=== PATIENT | female | born 1945 | race Caucasian/White ===

== ENCOUNTER → 2016-12-30 | Outpatient (CLI) | payer MEDICARE, OTHER | LOC: MAMO 10:03 | DX: Z12.31 Encounter for screening mammogram for malignant neoplasm of breast (principal) | CPT/HCPCS: G0202 ==

== ENCOUNTER → 2020-07-22 | Outpatient (CLI) | payer MEDICARE, OTHER ==
[~2020-07-22] MED LIST: ACCUPRIL40 MG PO; AMBIEN10 MG PO; ATORVASTATIN CA20 MG PO; ECOTRIN81 MG PO; IBANDRONATE SO150 MG PO; LEXAPRO10 MG PO; MOBIC7.5 MG PO; SYNTHROID100 MCG PO; VITAMIN B12-FO1 EACH PO; VITAMIN D250000 UNIT PO
== END ==
LOC: KOH-I 15:15
DX: M51.16 Intervertebral disc disorders with radiculopathy, lumbar region (principal); M51.25 Other intervertebral disc displacement, thoracolumbar region; M48.05 Spinal stenosis, thoracolumbar region
CPT/HCPCS: 72148

== ENCOUNTER → 2020-10-29 | Outpatient (CLI) | payer MEDICARE, OTHER | LOC: MAMO 10-27 10:30 | DX: Z12.31 Encounter for screening mammogram for malignant neoplasm of breast (principal); R92.8 Other abnormal and inconclusive findings on diagnostic imaging of breast | CPT/HCPCS: 77063; 77067 ==

== ENCOUNTER 2020-11-23 13:14 | Emergency (ER) | payer MEDICARE, OTHER | END 2020-11-23 15:30 | disposition home or self-care (01) | LOC: ER1 13:14 | DX: S83.91XA Sprain of unspecified site of right knee, initial encounter (principal); I10 Essential (primary) hypertension; W19.XXXA Unspecified fall, initial encounter; Y92.009 Unspecified place in unspecified non-institutional (private) residence as the place of occurrence of the external cause | CPT/HCPCS: 73564; 99283; J1885 ==

== ENCOUNTER → 2020-12-23 | Outpatient (CLI) | payer MEDICARE, OTHER | LOC: KOH-I 10:11 | DX: S83.281A Other tear of lateral meniscus, current injury, right knee, initial encounter (principal); M17.11 Unilateral primary osteoarthritis, right knee; S83.241A Other tear of medial meniscus, current injury, right knee, initial encounter; M25.561 Pain in right knee | CPT/HCPCS: 73721 ==

== ENCOUNTER 2021-05-12 11:52 | Emergency (ER) | payer MEDICARE, OTHER ==
[2021-05-12 13:36] LABS: HEMOGLOBIN 14.9 gm/dl (12.3-15.3); RED BLOOD COUNT 4.52 M/UL (4.00-5.10); WHITE BLOOD COUNT 9.9 K/UL (4.5-11.0)
[2021-05-12] MEDS ORDERED: IBUPROFEN600 MG PO (13:40)
[2021-05-12 13:53] LABS: BUN/CREATININE RATIO 16 (0-10)
== END 2021-05-12 14:00 | disposition home or self-care (01) ==
LOC: ER1 11:52
PROVIDERS: Nurse Practitioner
DX: S00.81XA Abrasion of other part of head, initial encounter (principal); I10 Essential (primary) hypertension; E03.9 Hypothyroidism, unspecified; E78.5 Hyperlipidemia, unspecified; W19.XXXA Unspecified fall, initial encounter
CPT/HCPCS: 70450; 73130; 73560; 80053; 85025; 93005; 99284

== ENCOUNTER → 2021-06-29 | Outpatient (CLI) | payer MEDICARE, OTHER ==
[~2021-06-29] MED LIST changes: +BIOTIN; +CENTRUM; +FLONASE; +IBUPROFEN600 MG PO; +LASIX; +OXYBUTYNIN CHLOR5 MG PO; +POTASSIUM; +TYLENOL
[2021-06-29 11:54] LABS: RED BLOOD COUNT 4.31 M/UL (4.00-5.10); WHITE BLOOD COUNT 7.1 K/UL (4.5-11.0)
[2021-06-29 12:11] LABS: BUN/CREATININE RATIO 14 (0-10)
== END ==
LOC: OPSV2 10:30 → EDSTATUS 10:30 → OPSV2 11:09
PROVIDERS: Orthopaedic Surgery
DX: Z01.818 Encounter for other preprocedural examination (principal)
CPT/HCPCS: 36415; 71046; 80048; 85025; 93005

== ENCOUNTER → 2021-07-12 | Outpatient (CLI) | payer MEDICARE, OTHER ==
[~2021-07-12] MED LIST changes: -BIOTIN; +BIOTIN GUMMIES PO; -CENTRUM; +CENTRUM CHEWAB1 EAC3 PO; -FLONASE; +FLONASE ALLER15.8 ML; -TYLENOL; +TYLENOL EXTRA500 MG PO; +VITAMIN D325 MCG PO
[2021-07-12 12:33] LABS: BUN/CREATININE RATIO 21 (0-10)
== END ==
LOC: LAB 11:51
PROVIDERS: Surgery
DX: Z01.812 Encounter for preprocedural laboratory examination (principal)
CPT/HCPCS: 36415; 80048; 86850; 86900; 86901

== ENCOUNTER 2021-07-13 05:25 | Day surgery (SDC) | payer MEDICARE, OTHER ==
[~2021-07-13] VITALS: Ht 152.4 cm; Wt 90.7 kg
[~2021-07-13 05:25] MED LIST changes: -BIOTIN GUMMIES PO; -CENTRUM CHEWAB1 EAC3 PO; -FLONASE ALLER15.8 ML; -SYNTHROID100 MCG PO; -TYLENOL EXTRA500 MG PO; -VITAMIN D325 MCG PO
[2021-07-13] MEDS ORDERED: SYNTHROID100 MCG PO (06:33)
[2021-07-13] MEDS ORDERED: FLONASE ALLER15.8 ML (11:58)
[2021-07-13] MEDS ORDERED: TYLENOL EXTRA500 MG PO (11:58)
[2021-07-13] MEDS ORDERED: BIOTIN GUMMIES PO (11:59)
[2021-07-13] MEDS ORDERED: CENTRUM CHEWAB1 EAC3 PO (11:59)
[2021-07-13] MEDS ORDERED: MOBIC7.5 MG PO (19:05)
[2021-07-13] MEDS ORDERED: VITAMIN D325 MCG PO (19:06)
--- NOTE | 2021-07-13 23:38 | NUR ---
polar ice on rt knee
--- NOTE | 2021-07-14 05:58 | NUR ---
POLAR ICE OFF
[2021-07-14 06:39] LABS: HEMOGLOBIN 12.5 gm/dl (12.3-15.3); RED BLOOD COUNT 3.86 M/UL (4.00-5.10); WHITE BLOOD COUNT 16.7 K/UL (4.5-11.0)
[2021-07-14 06:59] LABS: BUN/CREATININE RATIO 22 (0-10)
[2021-07-15 05:32] LABS: HEMOGLOBIN 12.4 gm/dl (12.3-15.3); RED BLOOD COUNT 3.82 M/UL (4.00-5.10); WHITE BLOOD COUNT 14.1 K/UL (4.5-11.0)
[2021-07-15 05:45] LABS: BUN/CREATININE RATIO 20 (0-10)
[2021-07-15] MEDS ORDERED: ROXICODONE TAB 55 MG PO (18:38)
[2021-07-15] MEDS ORDERED: ASPIRIN EC81 MG PO (18:38)
[2021-07-16 06:23] LABS: HEMOGLOBIN 12.1 gm/dl (12.3-15.3); RED BLOOD COUNT 3.74 M/UL (4.00-5.10); WHITE BLOOD COUNT 11.2 K/UL (4.5-11.0)
[2021-07-16 06:40] LABS: BUN/CREATININE RATIO 21 (0-10)
--- NOTE | 2021-07-16 10:35 | NUR ---
able to get hold of ambulance-
== END 2021-07-16 11:53 ==
LOC: OR 05:25 → EDSTATUS 07:30 → OR 07:30 → M/S 15:20 → OR 07-16 11:53
PROVIDERS: Orthopaedic Surgery
DX: M17.11 Unilateral primary osteoarthritis, right knee (principal); M21.061 Valgus deformity, not elsewhere classified, right knee; I10 Essential (primary) hypertension; E78.5 Hyperlipidemia, unspecified; Z88.5 Allergy status to narcotic agent; Z79.82 Long term (current) use of aspirin; Z20.822 Contact with and (suspected) exposure to COVID-19; Z87.891 Personal history of nicotine dependence; E03.9 Hypothyroidism, unspecified; Z88.0 Allergy status to penicillin
CPT/HCPCS: 36415; 73560; 80048; 85025; 97110-GP-CQ; 97116-GP-CQ; 97162; 97166; 97530-GP-CQ; 97535; C1776; J0592; J0690; J1100; J2001; J2270; J2400; J2405; J2550; J2704; J2710; J2795; J3010; J3370; J7120; U0002

== ENCOUNTER 2021-11-15 10:11 | Emergency (ER) | payer MEDICARE, OTHER ==
[~2021-11-15 10:11] MED LIST changes: +ASPIRIN EC81 MG PO; +BIOTIN GUMMIES PO; +CENTRUM CHEWAB1 EAC3 PO; +FLONASE ALLER15.8 ML; +ROXICODONE TAB 55 MG PO; +SYNTHROID100 MCG PO; +TYLENOL EXTRA500 MG PO; +VITAMIN D325 MCG PO
[2021-11-15] MEDS ORDERED: IBUPROFEN400 MG PO (12:08)
== END 2021-11-15 12:51 | disposition home or self-care (01) ==
LOC: ER1 10:11
DX: S70.02XA Contusion of left hip, initial encounter (principal); I10 Essential (primary) hypertension; Z88.5 Allergy status to narcotic agent; W08.XXXA Fall from other furniture, initial encounter
CPT/HCPCS: 73502; 73700; 99284

== ENCOUNTER → 2021-11-26 | Day surgery (SDC) | payer MEDICARE, OTHER ==
[~2021-11-26] MED LIST changes: +BONIVA150 MG PO; +HYDROXYZINE HCL50 MG PO; +HYGROTON TAB 2525 MG PO; +IBUPROFEN400 MG PO
== END | disposition home or self-care (01) ==
LOC: OR 05:41
DX: Z12.11 Encounter for screening for malignant neoplasm of colon (principal); K57.30 Diverticulosis of large intestine without perforation or abscess without bleeding; Z80.0 Family history of malignant neoplasm of digestive organs; Z20.822 Contact with and (suspected) exposure to COVID-19; I10 Essential (primary) hypertension; I25.10 Atherosclerotic heart disease of native coronary artery without angina pectoris; E78.5 Hyperlipidemia, unspecified; K21.9 Gastro-esophageal reflux disease without esophagitis; M19.90 Unspecified osteoarthritis, unspecified site; E03.9 Hypothyroidism, unspecified; E66.9 Obesity, unspecified; E66.01 Morbid (severe) obesity due to excess calories; Z87.891 Personal history of nicotine dependence; Z68.38 Body mass index [BMI] 38.0-38.9, adult; Z88.0 Allergy status to penicillin; Z88.2 Allergy status to sulfonamides; Z88.5 Allergy status to narcotic agent; Z79.82 Long term (current) use of aspirin; Z79.1 Long term (current) use of non-steroidal anti-inflammatories (NSAID); Z79.899 Other long term (current) drug therapy
CPT/HCPCS: J2001; J2704; J7030

== ENCOUNTER 2021-12-23 13:03 | Emergency (ER) | payer MEDICARE, OTHER | END 2021-12-23 16:04 | disposition home or self-care (01) | LOC: ER1 13:03 | DX: S92.352A Displaced fracture of fifth metatarsal bone, left foot, initial encounter for closed fracture (principal); Z88.0 Allergy status to penicillin; E78.5 Hyperlipidemia, unspecified; I10 Essential (primary) hypertension; W19.XXXA Unspecified fall, initial encounter | CPT/HCPCS: 29515; 73610; 73630; 99283 ==